=== PATIENT | female | born 1930 | race Asian ===

== ENCOUNTER → 2016-07-09 | Outpatient (CLI) | payer OTHER | END | disposition home or self-care (01) | LOC: LAB 16:57 | PROVIDERS: ATTEND Internal Medicine | DX: Z01.20 Encounter for dental examination and cleaning without abnormal findings (principal); Z00.00 Encounter for general adult medical examination without abnormal findings; I10 Essential (primary) hypertension | CPT/HCPCS: 82270 ==

== ENCOUNTER → 2016-10-10 | Outpatient (CLI) | payer OTHER ==
[2016-10-10 16:15] LABS: Basophils # (auto) 0 uL; Basophils % (auto) 0.5 % (0.0-2.0); Eosinophils # (auto) 0.1 uL; Hematocrit 35.3 % (36.0-46.0); Hemoglobin 11.8 g/dL (12.2-16.2); Lymphocytes # (auto) 1.3 uL; Lymphocytes % (auto) 29.3 % (10.0-50.0); Mean Corpuscular Hgb Conc. 33.4 g/dL (32.0-36.0); Mean Corpuscular Volume 92.9 fL (80.0-100.0); Mean Platelet Volume 7.6 fL (7.4-10.4); Monocytes # (auto) 0.4 uL; Monocytes % (auto) 9.5 % (0.0-12.0); Neutrophils # (auto) 2.6 uL; Neutrophils % (auto) 58.7 % (37.0-80.0); Platelet Count (auto) 280 10^3/uL (140-450); Red Cell Distribution Width 13.7 % (11.6-16.0); White Blood Cell 4.4 10^3/uL (4.4-10.8)
[2016-10-10 16:25] LABS: Albumin 3.3 g/dL (3.4-5.0); BUN/Creatinine Ratio 18.8; Calcium 8.8 mg/dL (8.5-10.1); Potassium 3.9 mmol/L (3.5-5.1)
[2016-10-10 16:26] LABS: Bilirubin, Total 0.5 mg/dL (0.2-1.0); Total Protein 7.5 g/dL (6.4-8.2)
[2016-10-10 17:08] LABS: Temperature: 23.4 C (20.0-25.0)
== END | disposition home or self-care (01) ==
LOC: LAB 15:45
PROVIDERS: ATTEND Internal Medicine
DX: E78.5 Hyperlipidemia, unspecified (principal); I10 Essential (primary) hypertension
CPT/HCPCS: 36415; 80053; 82607; 82728; 82746; 83540; 85025

== ENCOUNTER → 2017-02-12 | Outpatient (CLI) | payer OTHER ==
[2017-02-12 11:26] LABS: Albumin 3.4 g/dL (3.4-5.0); BUN/Creatinine Ratio 25.7; Calcium 8.6 mg/dL (8.5-10.1); Potassium 3.9 mmol/L (3.5-5.1); Total Protein 7.2 g/dL (6.4-8.2)
== END | disposition home or self-care (01) ==
LOC: LAB 10:02
PROVIDERS: ATTEND Internal Medicine
DX: N18.3 Chronic kidney disease, stage 3 (moderate) (principal); E78.00 Pure hypercholesterolemia, unspecified
CPT/HCPCS: 36415; 80053

== ENCOUNTER → 2017-08-08 | Outpatient (CLI) | payer OTHER ==
[2017-08-08 10:50] LABS: Albumin 3.4 g/dL (3.4-5.0); BUN/Creatinine Ratio 16.9; Calcium 8.6 mg/dL (8.5-10.1); Potassium 4.2 mmol/L (3.5-5.1); Total Protein 7.2 g/dL (6.4-8.2)
== END | disposition home or self-care (01) ==
LOC: LAB 09:52
PROVIDERS: ATTEND Internal Medicine
DX: Z00.01 Encounter for general adult medical examination with abnormal findings (principal); I10 Essential (primary) hypertension; E03.9 Hypothyroidism, unspecified; E78.5 Hyperlipidemia, unspecified
CPT/HCPCS: 36415; 80053; 80061; 84443

== ENCOUNTER → 2017-08-11 | Outpatient (CLI) | payer OTHER | END | disposition home or self-care (01) | LOC: LAB 15:03 | PROVIDERS: ATTEND Internal Medicine | DX: Z00.01 Encounter for general adult medical examination with abnormal findings (principal); I10 Essential (primary) hypertension; E03.9 Hypothyroidism, unspecified; E78.5 Hyperlipidemia, unspecified | CPT/HCPCS: 82270 ==

== ENCOUNTER 2017-10-13 18:42 | Inpatient (IN) | payer OTHER ==
[~2017-10-13] VITALS: Ht 152.4 cm; Wt 62.8 kg
[2017-10-13] MEDS ORDERED: MORPHINE SULFATE 10 MG/ML INJ 1ML SDV IV ONE (19:30)
[2017-10-13] MEDS ORDERED: KETOROLAC TROMETH 30 MG/ML 1ML VIAL IV ONE (19:30)
[2017-10-13] MEDS ORDERED: ONDANSETRON HCL 4 MG/2 ML VIAL IV ONE (19:30)
[2017-10-13 21:07] LABS: Basophils # (auto) 0 uL; Basophils % (auto) 0.3 % (0.0-2.0); Eosinophils # (auto) 0 uL; Eosinophils % (auto) 0.2 % (0.0-7.0); Hematocrit 29.7 % (36.0-46.0); Hemoglobin 9.9 g/dL (12.2-16.2); Lymphocytes # (auto) 0.5 uL; Lymphocytes % (auto) 5.5 % (10.0-50.0); Mean Corpuscular Hemoglobin 31.4 pg (28.0-32.0); Mean Corpuscular Hgb Conc. 33.4 g/dL (32.0-36.0); Mean Corpuscular Volume 93.9 fL (80.0-100.0); Monocytes # (auto) 0.5 uL; Monocytes % (auto) 5.6 % (0.0-12.0); Neutrophils # (auto) 7.4 uL; Neutrophils % (auto) 88.4 % (37.0-80.0); Platelet Count (auto) 174 10^3/uL (140-450); Red Blood Cells 3.16 10^6/uL (4.0-5.20); Red Cell Distribution Width 12.7 % (11.8-14.3); White Blood Cell 8.3 10^3/uL (4.4-10.8)
[2017-10-13 21:18] LABS: Albumin 3.1 g/dL (3.4-5.0); BUN/Creatinine Ratio 21.5; Calcium 8.9 mg/dL (8.5-10.1); Potassium 3.9 mmol/L (3.5-5.1)
[2017-10-13 21:19] LABS: Bilirubin, Total 0.5 mg/dL (0.2-1.0); Total Protein 6.8 g/dL (6.4-8.2)
[2017-10-13 21:22] LABS: INR 0.97 (0.9-1.15); Prothrombin Time 10.4 sec (9.27-12.13)
[2017-10-13] MEDS ORDERED: NITROGLYCERIN 0.4 MG SL TAB SL PRN (22:00)
[2017-10-13] MEDS ORDERED: MORPHINE SULFATE 8mg/ml INJ SDV IV PRN (22:00)
[2017-10-13] MEDS ORDERED: TEMAZEPAM 15 MG CAP PO PRN (22:00)
[2017-10-13 22:53] LABS: Urine Bacteria NONE SEEN /hpf (None Seen); Urine Blood Negative /uL (Negative); Urine Specific Gravity 1.011 (1.001-1.035); Urine WBC <1 /hpf (0 - 5)
[2017-10-13 22:57] VITALS: BP 132/60
[2017-10-14] MEDS: LISINOPRIL 20 MG TAB PO SCH ×3 (00:56→22:00)
[2017-10-14] MEDS: GEMFIBROZIL 600 MG TAB PO SCH ×3 (00:57→22:24)
[2017-10-14] MEDS ORDERED: LISI-646 PO (03:10)
[2017-10-14] MEDS ORDERED: DONE10TA40 PO (03:10)
[2017-10-14] MEDS ORDERED: DOXA1TAB41 PO (03:10)
[2017-10-14] MEDS ORDERED: POTA10TA51 PO (03:10)
[2017-10-14] MEDS ORDERED: ALEN70TA55 PO (03:10)
[2017-10-14] MEDS ORDERED: LEVO100T8 PO (03:10)
[2017-10-14] MEDS ORDERED: LEVO88TA4 PO (03:10)
[2017-10-14] MEDS ORDERED: GEMF600T3 PO (03:10)
[2017-10-14] MEDS ORDERED: CALC600T10 OR ×2 (03:10)
[2017-10-14] MEDS ORDERED: CYAN1TAB14 PO (03:10)
[2017-10-14] MEDS ORDERED: FURO20TA3 PO (03:10)
[2017-10-14] MEDS ORDERED: CETI10CA PO (03:10)
[2017-10-14] MEDS ORDERED: ATEN50TA PO (03:10)
[2017-10-14] MEDS ORDERED: CITA-77 PO (03:10)
[2017-10-14] MEDS ORDERED: GABA100C9 PO (03:10)
[2017-10-14] MEDS ORDERED: NAPR375T27 PO (03:10)
[2017-10-14 05:10] VITALS: BP 105/55
[2017-10-14] MEDS: LEVOTHYROXINE SODIUM 88 MCG TAB PO SCH (06:09)
[2017-10-14 07:12] LABS: Basophils # (auto) 0 uL; Basophils % (auto) 0.4 % (0.0-2.0); Eosinophils # (auto) 0 uL; Eosinophils % (auto) 0.5 % (0.0-7.0); Hematocrit 25.4 % (36.0-46.0); Hemoglobin 8.5 g/dL (12.2-16.2); Lymphocytes # (auto) 0.9 uL; Lymphocytes % (auto) 16.8 % (10.0-50.0); Mean Corpuscular Hemoglobin 31.7 pg (28.0-32.0); Mean Corpuscular Hgb Conc. 33.3 g/dL (32.0-36.0); Monocytes # (auto) 0.6 uL; Monocytes % (auto) 11.1 % (0.0-12.0); Neutrophils # (auto) 3.9 uL; Neutrophils % (auto) 71.2 % (37.0-80.0); Nucleated Red Blood Cells % 0.1 %; Platelet Count (auto) 157 10^3/uL (140-450); Red Blood Cells 2.67 10^6/uL (4.0-5.20); Red Cell Distribution Width 12.9 % (11.8-14.3); White Blood Cell 5.5 10^3/uL (4.4-10.8)
[2017-10-14 07:43] LABS: Albumin 2.8 g/dL (3.4-5.0); BUN/Creatinine Ratio 20.3; Bilirubin, Total 0.6 mg/dL (0.2-1.0); Calcium 8.3 mg/dL (8.5-10.1); Potassium 3.9 mmol/L (3.5-5.1)
[2017-10-14 08:57] VITALS: BP 91/45
[2017-10-14] MEDS: MORPHINE SULFATE 8mg/ml INJ SDV IV PRN ×4 (09:33→22:24)
[2017-10-14] MEDS: ONDANSETRON HCL 4 MG/2 ML VIAL IV PRN ×3 (09:34→17:43)
[2017-10-14] MEDS: FUROSEMIDE 20 MG TAB PO SCH (10:00)
[2017-10-14] MEDS: CITALOPRAM HYDROBR 20 MG TAB PO SCH (10:08)
[2017-10-14] MEDS: PANTOPRAZOLE 40 MG TAB PO SCH (10:10)
[2017-10-14] MEDS: ENOXAPARIN SOD 30 MG/0.3 ML SYRINGE SC SCH (10:11)
[2017-10-14 13:00] VITALS: BP 125/68
[2017-10-14 17:00] VITALS: BP 104/54
[2017-10-14 21:35] VITALS: BP 108/52
[2017-10-15] MEDS ORDERED: DILTIAZEM HCL 25 MG/5 ML VIAL IV PRN (01:30)
[2017-10-15] MEDS: MORPHINE SULFATE 8mg/ml INJ SDV IV PRN (04:40)
[2017-10-15 05:02] VITALS: BP 127/65
[2017-10-15] MEDS: LEVOTHYROXINE SODIUM 88 MCG TAB PO SCH (06:23)
[2017-10-15 06:52] LABS: Hematocrit 25.7 % (36.0-46.0); Hemoglobin 8.6 g/dL (12.2-16.2)
[2017-10-15 09:00] VITALS: BP 108/44
[2017-10-15] MEDS: GEMFIBROZIL 600 MG TAB PO SCH ×2 (09:18→22:10)
[2017-10-15] MEDS: PANTOPRAZOLE 40 MG TAB PO SCH (09:18)
[2017-10-15] MEDS: CITALOPRAM HYDROBR 20 MG TAB PO SCH (09:18)
[2017-10-15] MEDS: FUROSEMIDE 20 MG TAB PO SCH (09:18)
[2017-10-15] MEDS: ENOXAPARIN SOD 30 MG/0.3 ML SYRINGE SC SCH (09:18)
[2017-10-15] MEDS: LISINOPRIL 20 MG TAB PO SCH ×2 (09:19→22:11)
[2017-10-15] MEDS ORDERED: MORPHINE SULFATE 10 MG/ML INJ 1ML SDV IV PRN (11:30)
[2017-10-15] MEDS: MORPHINE SULFATE 10 MG/ML INJ 1ML SDV IV PRN ×3 (11:44→20:00)
[2017-10-15 12:56] VITALS: BP 111/49
[2017-10-15 16:55] VITALS: BP 101/58
[2017-10-15 18:38] LABS: BUN/Creatinine Ratio 20.2; Calcium 8.2 mg/dL (8.5-10.1)
[2017-10-15 21:44] VITALS: BP 127/72
[2017-10-15] MEDS: SOD CHL 0.45% 1,000 ML IV SCH (22:00)
[2017-10-16] VITALS (12 sets, daily range): BP systolic 124–149; BP diastolic 69–90
[2017-10-16] MEDS: MORPHINE SULFATE 10 MG/ML INJ 1ML SDV IV PRN ×4 (03:30→21:30)
[2017-10-16 06:14] LABS: Basophils # (auto) 0 uL; Eosinophils # (auto) 0.1 uL; Lymphocytes # (auto) 0.7 uL; Monocytes # (auto) 0.9 uL
[2017-10-16] MEDS: SOD CHL 0.45% 1,000 ML IV SCH ×2 (06:14→20:25)
[2017-10-16 06:16] LABS: Basophils % (auto) 0.3 % (0.0-2.0); Eosinophils % (auto) 1.2 % (0.0-7.0); Hematocrit 23.7 % (36.0-46.0); Lymphocytes % (auto) 10.4 % (10.0-50.0); Mean Corpuscular Hgb Conc. 33.9 g/dL (32.0-36.0); Mean Corpuscular Volume 94.4 fL (80.0-100.0); Monocytes % (auto) 12.9 % (0.0-12.0); Neutrophils % (auto) 75.2 % (37.0-80.0); Platelet Count (auto) 145 10^3/uL (140-450); Red Blood Cells 2.51 10^6/uL (4.0-5.20); Red Cell Distribution Width 12.8 % (11.8-14.3); White Blood Cell 6.6 10^3/uL (4.4-10.8)
[2017-10-16] MEDS: LEVOTHYROXINE SODIUM 88 MCG TAB PO SCH (07:00)
[2017-10-16] MEDS: GEMFIBROZIL 600 MG TAB PO SCH ×4 (09:44→21:34)
[2017-10-16] MEDS: FUROSEMIDE 20 MG TAB PO SCH (09:44)
[2017-10-16] MEDS: PANTOPRAZOLE 40 MG TAB PO SCH (09:44)
[2017-10-16] MEDS: ENOXAPARIN SOD 30 MG/0.3 ML SYRINGE SC SCH ×2 (09:45→11:41)
[2017-10-16] MEDS: LISINOPRIL 20 MG TAB PO SCH ×2 (09:45→21:35)
[2017-10-16] MEDS: CITALOPRAM HYDROBR 20 MG TAB PO SCH (09:45)
[2017-10-16] MEDS ORDERED: METOPROLOL TARTRATE 50 MG TAB PO ONE (11:15)
[2017-10-16] MEDS: METOPROLOL TARTRATE 25 MG TAB PO SCH (21:34)
[2017-10-16] MEDS: AMIODARONE HCL 200 MG TAB PO SCH (21:34)
[2017-10-17] MEDS: MORPHINE SULFATE 10 MG/ML INJ 1ML SDV IV PRN ×3 (02:20→20:19)
[2017-10-17] MEDS: LEVOTHYROXINE SODIUM 88 MCG TAB PO SCH (02:30)
[2017-10-17 05:01] VITALS: BP 153/71
[2017-10-17] MEDS ORDERED: CLINDAMYCIN 600MG IV 50 ML IV ONE (07:16)
[2017-10-17] MEDS ORDERED: TETRACAINE 1% INJ 2 ML VIAL IJ ONE (07:28)
[2017-10-17] MEDS ORDERED: MIDAZOLAM HCL 1MG/1ML-2 ML VIAL ONE ×2 (07:35→08:36)
[2017-10-17] MEDS ORDERED: MEPERIDINE HCL (50 MG/ML) 1 ML VIAL ONE (07:36)
[2017-10-17] MEDS ORDERED: fentaNYL CITRATE 100 MCG/2 ML VL ONE (07:36)
[2017-10-17 08:09] LABS: Hematocrit 31.8 % (36.0-46.0); Hemoglobin 10.6 g/dL (12.2-16.2)
[2017-10-17] MEDS ORDERED: PROPOFOL 10 MG/ML 20 ML IV ONE (08:25)
[2017-10-17] MEDS ORDERED: DEXAMETHASONE SOD PHOS 10MG/1ML VIAL INJ ONE (08:25)
[2017-10-17] MEDS ORDERED: PHENYLEPHRINE HCL 10 MG/ML VL ONE (08:34)
[2017-10-17] MEDS ORDERED: MORPHINE SULFATE 8mg/ml INJ SDV IV PRN (09:45)
[2017-10-17] MEDS ORDERED: ONDANSETRON HCL 4 MG/2 ML VIAL IV ONE (09:45)
[2017-10-17] MEDS ORDERED: LABETALOL HCL 5 MG/ML 4ML SYRINGE IV PRN (09:45)
[2017-10-17] MEDS ORDERED: ePHEDrine SULFATE 50 MG/ML AMP IV PRN (09:45)
[2017-10-17] MEDS ORDERED: MIDAZOLAM HCL 1MG/1ML-2 ML VIAL IV PRN (09:45)
[2017-10-17] MEDS ORDERED: KETOROLAC TROMETH 30 MG/ML 1ML VIAL IV ONE (09:45)
[2017-10-17] MEDS ORDERED: MORPHINE SULFATE 8mg/ml INJ SDV IV ONE (10:00)
[2017-10-17] MEDS: CITALOPRAM HYDROBR 20 MG TAB PO SCH (11:04)
[2017-10-17] MEDS: GEMFIBROZIL 600 MG TAB PO SCH ×2 (11:04→21:51)
[2017-10-17] MEDS: PANTOPRAZOLE 40 MG TAB PO SCH (11:04)
[2017-10-17] MEDS: AMIODARONE HCL 200 MG TAB PO SCH ×2 (11:04→22:00)
[2017-10-17] MEDS: FUROSEMIDE 20 MG TAB PO SCH (11:05)
[2017-10-17] MEDS: METOPROLOL TARTRATE 25 MG TAB PO SCH ×2 (11:06→22:00)
[2017-10-17] MEDS: LISINOPRIL 20 MG TAB PO SCH ×2 (11:07→21:51)
[2017-10-17 13:00] VITALS: BP 158/84
[2017-10-17] MEDS: ENOXAPARIN SOD 40 MG/0.4 ML SYRINGE SC SCH (14:31)
[2017-10-17] MEDS: CLINDAMYCIN 600MG IV 50 ML IV SCH ×2 (14:32→21:50)
[2017-10-17] MEDS: SOD CHL 0.45% 1,000 ML IV SCH (14:39)
[2017-10-17] MEDS: RANOLAZINE ER 500 MG TAB PO SCH ×2 (16:51→21:51)
[2017-10-17 17:00] VITALS: BP 141/66
[2017-10-17 22:00] VITALS: BP 119/73
[2017-10-18] MEDS: SOD CHL 0.45% 1,000 ML IV SCH ×2 (02:36→13:57)
[2017-10-18 05:00] VITALS: BP 139/76
[2017-10-18] MEDS: CLINDAMYCIN 600MG IV 50 ML IV SCH ×3 (06:18→22:02)
[2017-10-18] MEDS: LEVOTHYROXINE SODIUM 88 MCG TAB PO SCH (06:18)
[2017-10-18 07:15] LABS: Hematocrit 28.3 % (36.0-46.0); Hemoglobin 9.5 g/dL (12.2-16.2)
[2017-10-18 09:00] VITALS: BP 139/72
[2017-10-18] MEDS: METOPROLOL TARTRATE 25 MG TAB PO SCH ×2 (10:00→22:01)
[2017-10-18] MEDS: GEMFIBROZIL 600 MG TAB PO SCH ×2 (10:15→21:58)
[2017-10-18] MEDS ORDERED: MORPHINE SULFATE 4 MG/ML SYR/VIAL IV PRN ×2 (10:15)
[2017-10-18] MEDS: RANOLAZINE ER 500 MG TAB PO SCH ×2 (10:16→22:06)
[2017-10-18] MEDS: FUROSEMIDE 20 MG TAB PO SCH (10:16)
[2017-10-18] MEDS: LISINOPRIL 20 MG TAB PO SCH ×2 (10:17→21:59)
[2017-10-18] MEDS: AMIODARONE HCL 200 MG TAB PO SCH ×2 (10:18→21:59)
[2017-10-18] MEDS: CITALOPRAM HYDROBR 20 MG TAB PO SCH (10:18)
[2017-10-18] MEDS: PANTOPRAZOLE 40 MG TAB PO SCH (10:19)
[2017-10-18] MEDS: ENOXAPARIN SOD 40 MG/0.4 ML SYRINGE SC SCH (10:20)
[2017-10-18 12:50] VITALS: BP 131/63
[2017-10-18] MEDS: traMADol HCL 50 MG TAB PO PRN ×2 (13:57→20:15)
[2017-10-18 17:00] VITALS: BP 144/72
[2017-10-18 22:00] VITALS: BP 154/71
[2017-10-19] VITALS (7 sets, daily range): BP systolic 104–144; BP diastolic 4–80
[2017-10-19] MEDS: SOD CHL 0.45% 1,000 ML IV SCH ×2 (04:36→15:30)
[2017-10-19] MEDS: CLINDAMYCIN 600MG IV 50 ML IV SCH (06:23)
[2017-10-19] MEDS: LEVOTHYROXINE SODIUM 88 MCG TAB PO SCH (06:23)
[2017-10-19 07:37] LABS: Hematocrit 29.7 % (36.0-46.0); Hemoglobin 10.1 g/dL (12.2-16.2)
[2017-10-19] MEDS: GEMFIBROZIL 600 MG TAB PO SCH ×2 (10:08→22:51)
[2017-10-19] MEDS: RIVAROXABAN 10 MG TAB PO SCH (10:08)
[2017-10-19] MEDS: PANTOPRAZOLE 40 MG TAB PO SCH (10:08)
[2017-10-19] MEDS: LISINOPRIL 20 MG TAB PO SCH ×2 (10:09→22:50)
[2017-10-19] MEDS: CITALOPRAM HYDROBR 20 MG TAB PO SCH (10:09)
[2017-10-19] MEDS: AMIODARONE HCL 200 MG TAB PO SCH ×2 (10:09→22:50)
[2017-10-19] MEDS: FUROSEMIDE 20 MG TAB PO SCH (10:10)
[2017-10-19] MEDS: METOPROLOL TARTRATE 25 MG TAB PO SCH ×2 (10:11→22:50)
[2017-10-19] MEDS: RANOLAZINE ER 500 MG TAB PO SCH ×2 (10:28→22:51)
[2017-10-19] MEDS: traMADol HCL 50 MG TAB PO PRN ×2 (11:40→19:05)
[2017-10-20] VITALS (7 sets, daily range): BP systolic 95–149; BP diastolic 4–84
[2017-10-20] MEDS: SOD CHL 0.45% 1,000 ML IV SCH ×2 (06:18→17:45)
[2017-10-20] MEDS: LEVOTHYROXINE SODIUM 88 MCG TAB PO SCH (06:18)
[2017-10-20 08:10] LABS: Hematocrit 32.9 % (36.0-46.0)
[2017-10-20] MEDS: GEMFIBROZIL 600 MG TAB PO SCH ×2 (10:16→22:32)
[2017-10-20] MEDS: CITALOPRAM HYDROBR 20 MG TAB PO SCH (10:16)
[2017-10-20] MEDS: PANTOPRAZOLE 40 MG TAB PO SCH (10:16)
[2017-10-20] MEDS: LISINOPRIL 20 MG TAB PO SCH ×2 (10:17→22:00)
[2017-10-20] MEDS: AMIODARONE HCL 200 MG TAB PO SCH ×2 (10:17→22:32)
[2017-10-20] MEDS: METOPROLOL TARTRATE 25 MG TAB PO SCH ×2 (10:18→22:33)
[2017-10-20] MEDS: FUROSEMIDE 20 MG TAB PO SCH (10:18)
[2017-10-20] MEDS: RIVAROXABAN 10 MG TAB PO SCH (10:18)
[2017-10-20] MEDS: RANOLAZINE ER 500 MG TAB PO SCH ×2 (10:18→22:35)
[2017-10-20] MEDS ORDERED: LEVOFLOXACIN 500MG 100 ML IV ONE (12:15)
[2017-10-20] MEDS: traMADol HCL 50 MG TAB PO PRN ×2 (14:28→22:31)
[2017-10-20] MEDS: DOCUSATE SOD 100 MG CAP PO SCH (22:31)
[2017-10-21 05:00] VITALS: BP 125/73
[2017-10-21] MEDS: traMADol HCL 50 MG TAB PO PRN ×2 (06:41→14:36)
[2017-10-21] MEDS: LEVOTHYROXINE SODIUM 88 MCG TAB PO SCH (06:41)
[2017-10-21] MEDS: SOD CHL 0.45% 1,000 ML IV SCH ×2 (07:05→20:25)
[2017-10-21 08:27] VITALS: BP 121/75
[2017-10-21] MEDS: DOCUSATE SOD 100 MG CAP PO SCH ×3 (10:08→22:45)
[2017-10-21] MEDS: LISINOPRIL 20 MG TAB PO SCH ×2 (10:08→22:46)
[2017-10-21] MEDS: CITALOPRAM HYDROBR 20 MG TAB PO SCH (10:08)
[2017-10-21] MEDS: METOPROLOL TARTRATE 25 MG TAB PO SCH ×2 (10:09→22:46)
[2017-10-21] MEDS: FUROSEMIDE 20 MG TAB PO SCH (10:09)
[2017-10-21] MEDS: GEMFIBROZIL 600 MG TAB PO SCH ×2 (10:09→22:45)
[2017-10-21] MEDS: PANTOPRAZOLE 40 MG TAB PO SCH (10:09)
[2017-10-21] MEDS: LEVOFLOXACIN 500MG 100 ML IV SCH (10:10)
[2017-10-21] MEDS: AMIODARONE HCL 200 MG TAB PO SCH ×2 (10:10→22:47)
[2017-10-21] MEDS: RIVAROXABAN 10 MG TAB PO SCH (10:22)
[2017-10-21] MEDS: RANOLAZINE ER 500 MG TAB PO SCH ×2 (10:22→22:46)
[2017-10-21] MEDS ORDERED: LACTULOSE 20Gm/30ML SOLN PO ONE (12:00)
[2017-10-21 12:30] VITALS: BP 126/64
[2017-10-21 16:17] VITALS: BP 140/67
[2017-10-21 20:00] VITALS: BP_DIAS 4
[2017-10-21 22:00] VITALS: BP 131/67
[2017-10-22] MEDS: traMADol HCL 50 MG TAB PO PRN (02:34)
[2017-10-22 05:00] VITALS: BP 145/74
[2017-10-22] MEDS: LEVOTHYROXINE SODIUM 88 MCG TAB PO SCH (06:40)
[2017-10-22 08:00] VITALS: BP 151/72
[2017-10-22 09:00] VITALS: BP 151/72
[2017-10-22] MEDS: SOD CHL 0.45% 1,000 ML IV SCH (09:45)
[2017-10-22] MEDS: GEMFIBROZIL 600 MG TAB PO SCH (09:51)
[2017-10-22] MEDS: METOPROLOL TARTRATE 25 MG TAB PO SCH (09:51)
[2017-10-22] MEDS: PANTOPRAZOLE 40 MG TAB PO SCH (09:52)
[2017-10-22] MEDS: DOCUSATE SOD 100 MG CAP PO SCH ×2 (09:52→09:54)
[2017-10-22] MEDS: FUROSEMIDE 20 MG TAB PO SCH (09:52)
[2017-10-22] MEDS: CITALOPRAM HYDROBR 20 MG TAB PO SCH (09:52)
[2017-10-22] MEDS: AMIODARONE HCL 200 MG TAB PO SCH (09:52)
[2017-10-22] MEDS: RIVAROXABAN 10 MG TAB PO SCH (09:53)
[2017-10-22] MEDS: LISINOPRIL 20 MG TAB PO SCH (09:53)
[2017-10-22] MEDS: LEVOFLOXACIN 500MG 100 ML IV SCH (09:53)
[2017-10-22] MEDS: RANOLAZINE ER 500 MG TAB PO SCH (09:53)
[2017-10-22 13:00] VITALS: BP 135/60
[2017-10-22 16:59] VITALS: BP 135/68
== END 2017-10-22 17:00 | disposition home health service (06) | DRG 480 ==
LOC: ER 18:42 → EDBD 18:42 → OBSVTOIN 18:43 → TELE 18:43 → TELE-WESTW 22:57
PROVIDERS: ADMIT Nurse Practitioner; ATTEND Family Medicine
PROC: 30233N1 Transfusion of Nonautologous Red Blood Cells into Peripheral Vein, Percutaneous Approach (ICD-10-PCS; principal; 2017-10-16)
PROC: 0QS606Z Reposition Right Upper Femur with Intramedullary Internal Fixation Device, Open Approach (ICD-10-PCS; 2017-10-17)
DX: S72.21XA Displaced subtrochanteric fracture of right femur, initial encounter for closed fracture (principal); J18.9 Pneumonia, unspecified organism; I13.0 Hypertensive heart and chronic kidney disease with heart failure and stage 1 through stage 4 chronic kidney disease, or unspecified chronic kidney disease; I48.91 Unspecified atrial fibrillation; I50.9 Heart failure, unspecified; D63.8 Anemia in other chronic diseases classified elsewhere; S72.141A Displaced intertrochanteric fracture of right femur, initial encounter for closed fracture; E78.5 Hyperlipidemia, unspecified; E03.9 Hypothyroidism, unspecified; E78.00 Pure hypercholesterolemia, unspecified; R74.8 Abnormal levels of other serum enzymes; R79.89 Other specified abnormal findings of blood chemistry; F32.9 Major depressive disorder, single episode, unspecified; M16.11 Unilateral primary osteoarthritis, right hip; N18.3 Chronic kidney disease, stage 3 (moderate); G47.00 Insomnia, unspecified; W18.2XXA Fall in (into) shower or empty bathtub, initial encounter; Y92.002 Bathroom of unspecified non-institutional (private) residence as the place of occurrence of the external cause; Y93.E1 Activity, personal bathing and showering; Z79.01 Long term (current) use of anticoagulants; Z80.7 Family history of other malignant neoplasms of lymphoid, hematopoietic and related tissues; Z88.8 Allergy status to other drugs, medicaments and biological substances; Z88.5 Allergy status to narcotic agent; Z88.0 Allergy status to penicillin; Z80.42 Family history of malignant neoplasm of prostate; Z71.3 Dietary counseling and surveillance
CPT/HCPCS: 36415; 51702; 71045; 71250; 73020; 73502; 76000; 80048; 80053; 81001; 84443; 84484; 85014; 85018; 85025; 85610; 86850; 86900; 86901; 86920; 93971; 96374; 96375; 97110; 97116; 97163; 97530; A4565; C1769; G0378; J1100; J1885; J1956; J2250; J2270; J2405; J2704; J3490

== ENCOUNTER → 2017-11-13 | Outpatient (CLI) | payer OTHER ==
[~2017-11-13] MED LIST: ALEN70TA55 PO; ATEN50TA PO; CALC600T10 OR; CETI10CA PO; CITA-77 PO; CYAN1TAB14 PO; DONE10TA40 PO; DOXA1TAB41 PO; FURO20TA3 PO; GABA100C9 PO; GEMF600T3 PO; LEVO100T8 PO; LEVO88TA4 PO; LISI-646 PO; NAPR375T27 PO; POTA10TA51 PO
[2017-11-13 09:44] LABS: Basophils # (auto) 0 uL; Basophils % (auto) 0.7 % (0.0-2.0); Eosinophils # (auto) 0.1 uL; Eosinophils % (auto) 2.1 % (0.0-7.0); Hematocrit 32.5 % (36.0-46.0); Hemoglobin 10.8 g/dL (12.2-16.2); Lymphocytes # (auto) 0.5 uL; Lymphocytes % (auto) 12.2 % (10.0-50.0); Mean Corpuscular Hemoglobin 31.3 pg (28.0-32.0); Mean Corpuscular Hgb Conc. 33.1 g/dL (32.0-36.0); Mean Corpuscular Volume 94.4 fL (80.0-100.0); Monocytes # (auto) 0.4 uL; Monocytes % (auto) 11.1 % (0.0-12.0); Neutrophils % (auto) 73.9 % (37.0-80.0); Platelet Count (auto) 311 10^3/uL (140-450); Red Blood Cells 3.44 10^6/uL (4.0-5.20); Red Cell Distribution Width 17.6 % (11.8-14.3)
== END | disposition home or self-care (01) ==
LOC: LAB 09:30
PROVIDERS: ATTEND Internal Medicine
DX: I12.9 Hypertensive chronic kidney disease with stage 1 through stage 4 chronic kidney disease, or unspecified chronic kidney disease (principal); N18.3 Chronic kidney disease, stage 3 (moderate); E03.9 Hypothyroidism, unspecified; E78.5 Hyperlipidemia, unspecified; E78.00 Pure hypercholesterolemia, unspecified; Z79.899 Other long term (current) drug therapy
CPT/HCPCS: 36415; 82306; 84439; 84443; 85025

== ENCOUNTER → 2018-07-21 | Outpatient (CLI) | payer OTHER ==
[~2018-07-21] MED LIST changes: +ALEN1TAB32 PO; -ALEN70TA55 PO; -GEMF600T3 PO; +GEMF600T7 PO
[2018-07-21 10:25] LABS: Urine Bacteria NONE SEEN /hpf (None Seen); Urine Blood Negative /uL (Negative); Urine Hyaline Cast FEW /lpf (0 - 2); Urine Specific Gravity 1.005 (1.001-1.035); Urine WBC <1 /hpf (0 - 5)
[2018-07-21 10:57] LABS: Albumin 3.6 g/dL (3.4-5.0); Calcium 9.7 mg/dL (8.5-10.1); Potassium 4.1 mmol/L (3.5-5.1)
[2018-07-21 11:02] LABS: BUN/Creatinine Ratio 16.3; Bilirubin, Total 0.5 mg/dL (0.2-1.0); CRP High Sensitivity 0.02 mg/dL (< 0.3); Total Protein 7.7 g/dL (6.4-8.2)
[2018-07-21 19:12] LABS: Free T4 (Free Thyroxine) 1.23 ng/dL (0.89-1.76)
[2018-07-21 19:14] LABS: Free T3 1.14 pg/mL (2.3-4.2); T3 Total 0.3 ng/mL (0.60-1.81)
== END | disposition home or self-care (01) ==
LOC: LAB 09:53
PROVIDERS: ATTEND Internal Medicine
DX: I48.91 Unspecified atrial fibrillation (principal); E78.5 Hyperlipidemia, unspecified; E03.9 Hypothyroidism, unspecified; I11.0 Hypertensive heart disease with heart failure; I50.9 Heart failure, unspecified
CPT/HCPCS: 36415; 80053; 80061; 81001; 82306; 82607; 83036; 84439; 84443; 84480; 84481; 86141

== ENCOUNTER → 2018-07-27 | Outpatient (CLI) | payer OTHER | END | disposition home or self-care (01) | LOC: LAB 11:14 | PROVIDERS: ATTEND Internal Medicine | DX: I48.91 Unspecified atrial fibrillation (principal); E03.9 Hypothyroidism, unspecified; E78.5 Hyperlipidemia, unspecified; I11.0 Hypertensive heart disease with heart failure; I50.9 Heart failure, unspecified | CPT/HCPCS: 82274 ==